=== PATIENT | female | born 1940 | race Caucasian/White ===

== ENCOUNTER 2017-11-24 09:00 | Observation (INO) | payer MEDICARE, MEDICAID ==
[~2017-11-24] VITALS: Ht 152.4 cm; Wt 66.6 kg
[~2017-11-24 09:00] MED LIST: ASPI-1264 PO; ATE25T PO; ATOR40TA PO; METH-360 PO; TELM40TA4 PO; TELM80TA2 PO; UBID100C45 PO
[2017-11-24 09:40] LABS: BASOPHILS % (AUTO) 0.4 % (0-1); EOSINOPHILS # (AUTO) 0.2 X10'3 (0-0.9); EOSINOPHILS % (AUTO) 2.9 % (0-6); HEMATOCRIT 46.8 % (35.0-45.0); HEMOGLOBIN 15.9 g/dl (12.0-16.0); LYMPHOCYTES # (AUTO) 1.4 X10'3 (1.1-4.8); LYMPHOCYTES % (AUTO) 23.1 % (21-51); MEAN CORPUSCULAR HEMOGLOBIN 31.6 PG (27.0-31.0); MEAN CORPUSCULAR HGB CONC 33.9 % (33.0-36.5); MEAN CORPUSCULAR VOLUME 93.3 FL (78-98); MEAN PLATELET VOLUME 8.7 FL (7.4-10.4); MONOCYTES # (AUTO) 0.4 X10'3 (0-0.9); MONOCYTES % (AUTO) 6.6 % (2-12); PLATELET COUNT 162 X10'3 (140-440); RED BLOOD COUNT 5.02 X10'6 (4.20-5.60); RED CELL DISTRIBUTION WIDTH 13.9 % (11.5-14.5)
[2017-11-24 09:58] LABS: PARTIAL THROMBOPLASTIN TIME 25 SECONDS (22-32)
[2017-11-24] MEDS ORDERED: HYDR25TA4 PO (10:10)
[2017-11-24 10:17] LABS: ALANINE AMINOTRANSFERASE 23 U/L (12-78); ALBUMIN 4.4 G/DL (3.4-5.0); ALKALINE PHOSPHATASE 192 IU/L (46-116); ANION GAP 13 (8-16); ASPARTATE AMINO TRANSFERASE 26 U/L (10-37); BILIRUBIN,TOTAL 0.7 MG/DL (0.1-1.0); BLOOD UREA NITROGEN 21 MG/DL (7-18); BUN/CREATININE RATIO 19.4 (6.6-38.0); CALCIUM 10.7 MG/DL (8.5-10.1); CHLORIDE 102 MMOL/L (99-107); CREATININE 1.08 MG/DL (0.40-0.90); GLUCOSE 97 MG/DL (70-104); SODIUM 142 MMOL/L (135-145); TOTAL CARBON DIOXIDE 27.1 MMOL/L (24-32); TOTAL PROTEIN 8.9 G/DL (6.4-8.2); eGFR 49 ML/MIN
[2017-11-24] MEDS ORDERED: atenolol 25mg tablet PO ONE (10:45)
[2017-11-24] MEDS ORDERED: potassium Cl 10 mEq/100mL bag IV ONE (11:20)
[2017-11-24] MEDS ORDERED: potassium 10mEq/100ml NS w/LIDOcaine (10mg/bag) IV ONE (11:25)
[2017-11-24] MEDS ORDERED: acetaminophen 325mg tablet PO PRN ×2 (13:10)
[2017-11-24] MEDS ORDERED: aspirin 81mg tab.chew PO ONE (13:17)
[2017-11-24 13:33] LABS: HEMOGLOBIN A1C 6.1 % (4.5-6.2)
[2017-11-24] MEDS: normal saline 1000ml 1,000 ML IV SCH (13:59)
[2017-11-24 15:00] VITALS: BP 166/75
[2017-11-24 15:52] VITALS: BP 166/75
[2017-11-24] MEDS ORDERED: LORazepam 2 mg/ml vial IM ONE (16:30)
[2017-11-24] MEDS ORDERED: LORazepam 2 mg/ml vial IV ONE (16:40)
[2017-11-24 17:05] VITALS: BP 186/96
[2017-11-24] MEDS ORDERED: cyclobenzaprine 10mg tablet PO PRN (17:25)
[2017-11-24] MEDS ORDERED: HYDROchlorothiazide 25mg tablet PO ONE (18:00)
[2017-11-24 18:09] VITALS: BP 168/93
[2017-11-24] MEDS: docusate sod 100mg capsule PO SCH (20:46)
[2017-11-24] MEDS ORDERED: atorvastatin 20mg tablet PO SCH (21:00)
[2017-11-24] MEDS ORDERED: losartan 25mg tablet PO SCH (21:00)
[2017-11-24 21:12] VITALS: BP 122/68
[2017-11-25 02:00] VITALS: BP 139/79
[2017-11-25 05:00] VITALS: BP 152/69
[2017-11-25] MEDS: normal saline 1000ml 1,000 ML IV SCH (05:31)
[2017-11-25 06:24] LABS: CHOL/HDL RATIO 2.4 (0.00-4.99); CHOLESTEROL 125 MG/DL (0-200); HDL CHOLESTEROL 52 MG/DL (35-60); LDL CHOLESTEROL 62 MG/DL (50-100); TRIGLYCERIDES 94 MG/DL (20-135)
[2017-11-25 07:03] VITALS: BP 125/75
[2017-11-25] MEDS: docusate sod 100mg capsule PO SCH (07:11)
[2017-11-25] MEDS ORDERED: aspirin 81mg tablet.DR PO SCH (08:00)
[2017-11-25] MEDS ORDERED: atenolol 25mg tablet PO SCH (08:00)
[2017-11-25] MEDS ORDERED: enoxaparin 40mg/0.4ml syringe SQ SCH (08:00)
[2017-11-25] MEDS ORDERED: HYDROchlorothiazide 25mg tablet PO SCH (08:00)
[2017-11-25] MEDS ORDERED: aspirin 325mg tablet PO SCH (08:00)
[2017-11-25] MEDS ORDERED: atorvastatin 10mg tablet PO SCH (08:00)
[2017-11-25 10:00] VITALS: BP 130/73
[2017-11-25] MEDS ORDERED: CLOP75TA15 PO (12:16)
== END 2017-11-25 14:35 | disposition home health service (06) ==
LOC: ER 09:00 → ED HOLD 13:07 → UNDOADMIN 13:07 → ORTHO 4S 15:00
PROVIDERS: ADMIT Internal Medicine; ATTEND Internal Medicine
DX: I10 Essential (primary) hypertension (principal); E78.5 Hyperlipidemia, unspecified; I65.23 Occlusion and stenosis of bilateral carotid arteries; N17.9 Acute kidney failure, unspecified; Z86.73 Personal history of transient ischemic attack (TIA), and cerebral infarction without residual deficits; Z79.01 Long term (current) use of anticoagulants; Z79.82 Long term (current) use of aspirin; Z98.51 Tubal ligation status; Z87.891 Personal history of nicotine dependence
CPT/HCPCS: 36415; 70450; 70544; 70551; 71045; 80053; 80061; 82948; 83036; 84484; 85025; 85610; 85730; 87070; 92616; 93005; 93306; 93880; 96372; 96374; 97116; 97161; 99285; G0378; J1650; J2060; J7030; J3480

== ENCOUNTER → 2018-01-08 | Emergency (ER) | payer MEDICARE, MEDICAID ==
[~2018-01-08] VITALS: Ht 152.4 cm; Wt 68.0 kg
[~2018-01-08] MED LIST changes: +CLOP75TA15 PO; +HYDR25TA4 PO; -TELM80TA2 PO
[2018-01-08 11:49] VITALS: BP 140/92
== END | disposition home or self-care (01) ==
LOC: ER 11:42
DX: S20.212A Contusion of left front wall of thorax, initial encounter (principal); E78.00 Pure hypercholesterolemia, unspecified; I10 Essential (primary) hypertension; J44.9 Chronic obstructive pulmonary disease, unspecified; E11.9 Type 2 diabetes mellitus without complications; F12.90 Cannabis use, unspecified, uncomplicated; Z98.890 Other specified postprocedural states; Z98.51 Tubal ligation status; Z88.1 Allergy status to other antibiotic agents; Z88.2 Allergy status to sulfonamides; Z88.5 Allergy status to narcotic agent; Z79.82 Long term (current) use of aspirin; Z79.899 Other long term (current) drug therapy; W19.XXXA Unspecified fall, initial encounter; Y93.89 Activity, other specified; Y92.89 Other specified places as the place of occurrence of the external cause; Y99.9 Unspecified external cause status
CPT/HCPCS: 71101; 99284

== ENCOUNTER 2018-10-16 12:12 | Emergency (ER) | payer MEDICARE, MEDICAID ==
[~2018-10-16] VITALS: Ht 154.9 cm; Wt 68.2 kg
[2018-10-16 13:35] VITALS: BP 117/71
== END 2018-10-16 13:29 | disposition home or self-care (01) ==
LOC: ER 12:13
DX: S30.0XXA Contusion of lower back and pelvis, initial encounter (principal); E78.00 Pure hypercholesterolemia, unspecified; I10 Essential (primary) hypertension; J44.9 Chronic obstructive pulmonary disease, unspecified; E11.9 Type 2 diabetes mellitus without complications; F12.90 Cannabis use, unspecified, uncomplicated; Z98.890 Other specified postprocedural states; Z98.51 Tubal ligation status; Z88.1 Allergy status to other antibiotic agents; Z88.2 Allergy status to sulfonamides; Z88.5 Allergy status to narcotic agent; Z79.82 Long term (current) use of aspirin; Z79.899 Other long term (current) drug therapy; X58.XXXA Exposure to other specified factors, initial encounter; Y93.89 Activity, other specified; Y92.89 Other specified places as the place of occurrence of the external cause; Y99.9 Unspecified external cause status
CPT/HCPCS: 99281

== ENCOUNTER 2018-12-06 16:19 | Emergency (ER) | payer MEDICARE, MEDICAID ==
[~2018-12-06] VITALS: Ht 152.4 cm; Wt 68.2 kg
[2018-12-06 19:49] VITALS: BP 148/97
== END 2018-12-06 19:50 | disposition home or self-care (01) ==
LOC: ER 16:19
DX: M79.605 Pain in left leg (principal); E78.00 Pure hypercholesterolemia, unspecified; I10 Essential (primary) hypertension; J44.9 Chronic obstructive pulmonary disease, unspecified; E11.9 Type 2 diabetes mellitus without complications; F10.99 Alcohol use, unspecified with unspecified alcohol-induced disorder; F12.90 Cannabis use, unspecified, uncomplicated; F41.9 Anxiety disorder, unspecified; Z86.19 Personal history of other infectious and parasitic diseases; Z98.890 Other specified postprocedural states; Z98.51 Tubal ligation status; Z88.1 Allergy status to other antibiotic agents; Z88.2 Allergy status to sulfonamides; Z88.5 Allergy status to narcotic agent; Z88.8 Allergy status to other drugs, medicaments and biological substances; Z79.82 Long term (current) use of aspirin; Z79.899 Other long term (current) drug therapy; Y90.9 Presence of alcohol in blood, level not specified
CPT/HCPCS: 93971; 99284

== ENCOUNTER 2019-01-12 15:57 | Emergency (ER) | payer MEDICARE, MEDICAID, OTHER ==
[~2019-01-12] VITALS: Ht 152.4 cm; Wt 63.9 kg
[2019-01-12 16:47] LABS: CLARITY,URINE CLEAR (Clear); COLOR,URINE YELLOW (Yellow); GLUCOSE, URINE NEGATIVE (Neg); KETONES,URINE NEGATIVE (Neg); LEUKOCYTE ESTERASE ,URINE SMALL (Neg); NITRITES, URINE NEGATIVE (Neg); OCCULT BLOOD,URINE NEGATIVE (Neg); PROTEIN,URINE NEGATIVE (Neg); UROBILINOGEN,URINE 0.2 E.U/dL (0.2-1.0)
[2019-01-12 16:52] LABS: UA COLLECTION TYPE CLN CATCH MIDSTREAM
[2019-01-12 16:57] LABS: BACTERIA,URINE 1+ /HPF (Neg); RBC,URINE NONE SEEN /HPF (0-2); SQUAMOUS EPITHELIAL CELL,UR MANY /LPF (FEW); YEAST FEW /HPF (NEGATIVE)
[2019-01-12 17:08] LABS: BASOPHILS % (AUTO) 0.4 % (0-1); EOSINOPHILS # (AUTO) 0.1 X10'3 (0-0.9); EOSINOPHILS % (AUTO) 1.2 % (0-6); HEMATOCRIT 39.7 % (35.0-45.0); HEMOGLOBIN 13.3 g/dl (12.0-16.0); LYMPHOCYTES # (AUTO) 1.4 X10'3 (1.1-4.8); LYMPHOCYTES % (AUTO) 22.2 % (21-51); MEAN CORPUSCULAR HEMOGLOBIN 31.1 PG (27.0-31.0); MEAN CORPUSCULAR HGB CONC 33.4 g/dL (33.0-36.5); MEAN PLATELET VOLUME 8.7 FL (7.4-10.4); MONOCYTES # (AUTO) 0.5 X10'3 (0-0.9); MONOCYTES % (AUTO) 7.8 % (2-12); NEUTROPHILS # (AUTO) 4.2 X10'3 (1.8-7.7); NEUTROPHILS % (AUTO) 68.4 % (42-75); PLATELET COUNT 133 X10'3 (140-440); RED BLOOD COUNT 4.27 X10'6 (4.20-5.60); RED CELL DISTRIBUTION WIDTH 14.5 % (11.5-14.5); WHITE BLOOD COUNT 6.1 X10'3 (4.5-11.0)
[2019-01-12 17:22] LABS: ALANINE AMINOTRANSFERASE 29 U/L (12-78); ALBUMIN 3.7 G/DL (3.4-5.0); ALBUMIN/GLOBULIN RATIO 0.9 (1.1-1.5); ALKALINE PHOSPHATASE 98 IU/L (46-116); ANION GAP 10 (8-16); ASPARTATE AMINO TRANSFERASE 24 U/L (10-37); BILIRUBIN,TOTAL 0.6 MG/DL (0.1-1.0); BLOOD UREA NITROGEN 24 MG/DL (7-18); CALCIUM 9.5 MG/DL (8.5-10.1); CHLORIDE 104 MMOL/L (99-107); CREATININE 1.26 MG/DL (0.40-0.90); GLUCOSE 92 MG/DL (70-104); LIPASE 238 U/L (73-393); SODIUM 138 MMOL/L (135-145); TOTAL PROTEIN 7.6 G/DL (6.4-8.2); eGFR 41 ML/MIN
[2019-01-12] MEDS ORDERED: DOXY100C43 PO (18:44)
[2019-01-12 18:52] VITALS: BP 113/72
== END 2019-01-12 18:54 | disposition home or self-care (01) ==
LOC: ER 15:58
DX: N39.0 Urinary tract infection, site not specified (principal); E78.00 Pure hypercholesterolemia, unspecified; I10 Essential (primary) hypertension; J44.9 Chronic obstructive pulmonary disease, unspecified; J45.998 Other asthma; B19.10 Unspecified viral hepatitis B without hepatic coma; F41.8 Other specified anxiety disorders; Z98.51 Tubal ligation status; F12.90 Cannabis use, unspecified, uncomplicated; Z88.5 Allergy status to narcotic agent; Z88.2 Allergy status to sulfonamides; E11.8 Type 2 diabetes mellitus with unspecified complications
CPT/HCPCS: 36415; 80053; 81001; 83690; 85025; 99283

== ENCOUNTER 2019-02-06 13:01 | Emergency (ER) | payer MEDICARE, MEDICAID ==
[~2019-02-06] VITALS: Ht 167.6 cm; Wt 62.0 kg
[2019-02-06 13:46] LABS: BASOPHILS % (AUTO) 0.4 % (0-1); EOSINOPHILS % (AUTO) 0.9 % (0-6); HEMATOCRIT 40.7 % (35.0-45.0); HEMOGLOBIN 13.7 g/dl (12.0-16.0); LYMPHOCYTES # (AUTO) 0.9 X10'3 (1.1-4.8); LYMPHOCYTES % (AUTO) 21.9 % (21-51); MEAN CORPUSCULAR HEMOGLOBIN 31.4 PG (27.0-31.0); MEAN CORPUSCULAR HGB CONC 33.6 g/dL (33.0-36.5); MEAN CORPUSCULAR VOLUME 93.4 FL (78-98); MEAN PLATELET VOLUME 8.6 FL (7.4-10.4); MONOCYTES # (AUTO) 0.3 X10'3 (0-0.9); MONOCYTES % (AUTO) 7.9 % (2-12); NEUTROPHILS # (AUTO) 2.8 X10'3 (1.8-7.7); NEUTROPHILS % (AUTO) 68.9 % (42-75); PLATELET COUNT 126 X10'3 (140-440); RED BLOOD COUNT 4.36 X10'6 (4.20-5.60); RED CELL DISTRIBUTION WIDTH 15.1 % (11.5-14.5); WHITE BLOOD COUNT 4.1 X10'3 (4.5-11.0)
[2019-02-06] MEDS ORDERED: ondansetron 4mg rapidly disintigrating tab PO ONE (13:55)
[2019-02-06 14:03] LABS: ALANINE AMINOTRANSFERASE 24 U/L (12-78); ALBUMIN 3.5 G/DL (3.4-5.0); ALKALINE PHOSPHATASE 91 IU/L (46-116); ANION GAP 8 (8-16); ASPARTATE AMINO TRANSFERASE 26 U/L (10-37); BILIRUBIN,TOTAL 0.8 MG/DL (0.1-1.0); BLOOD UREA NITROGEN 15 MG/DL (7-18); BUN/CREATININE RATIO 12.3 (6.6-38.0); CALCIUM 9.3 MG/DL (8.5-10.1); CHLORIDE 106 MMOL/L (99-107); CREATININE 1.22 MG/DL (0.40-0.90); GLUCOSE 92 MG/DL (70-104); LIPASE 123 U/L (73-393); POTASSIUM 3.9 MMOL/L (3.5-5.1); SODIUM 141 MMOL/L (135-145); TOTAL CARBON DIOXIDE 27.4 MMOL/L (24-32); TOTAL PROTEIN 7.1 G/DL (6.4-8.2); eGFR 43 ML/MIN
[2019-02-06] MEDS ORDERED: ONDA8TAB6 PO (14:15)
[2019-02-06 14:21] LABS: CLARITY,URINE CLEAR (Clear); COLOR,URINE YELLOW (Yellow); GLUCOSE, URINE NEGATIVE (Neg); KETONES,URINE NEGATIVE (Neg); LEUKOCYTE ESTERASE ,URINE TRACE (Neg); NITRITES, URINE NEGATIVE (Neg); OCCULT BLOOD,URINE TRACE-INTACT (Neg); PROTEIN,URINE 30 mg/dl (Neg)
[2019-02-06 14:23] LABS: UA COLLECTION TYPE CLN CATCH MIDSTREAM
[2019-02-06 14:27] VITALS: BP 121/70
[2019-02-06 14:29] LABS: BACTERIA,URINE FEW /HPF (Neg); MUCUS STRANDS FEW /LPF (Neg); RBC,URINE 0-2 /HPF (0-2); SQUAMOUS EPITHELIAL CELL,UR MANY /LPF (FEW); WBC,URINE 0-4 /HPF (0-4)
== END 2019-02-06 14:30 | disposition home or self-care (01) ==
LOC: ER 13:01
DX: R19.7 Diarrhea, unspecified (principal); R10.84 Generalized abdominal pain; R11.0 Nausea; E78.00 Pure hypercholesterolemia, unspecified; I10 Essential (primary) hypertension; J44.9 Chronic obstructive pulmonary disease, unspecified; E11.9 Type 2 diabetes mellitus without complications; F41.9 Anxiety disorder, unspecified; F12.90 Cannabis use, unspecified, uncomplicated; Z88.1 Allergy status to other antibiotic agents; Z88.2 Allergy status to sulfonamides; Z88.8 Allergy status to other drugs, medicaments and biological substances; Z79.82 Long term (current) use of aspirin; Z79.899 Other long term (current) drug therapy; Z98.51 Tubal ligation status; Z98.890 Other specified postprocedural states
CPT/HCPCS: 36415; 80053; 81001; 83690; 85025; 99283

== ENCOUNTER 2019-10-01 18:14 | Emergency (ER) | payer MEDICARE, MEDICAID ==
[~2019-10-01] VITALS: Ht 152.4 cm; Wt 60.9 kg
[~2019-10-01 18:14] MED LIST changes: +ONDA8TAB6 PO
[2019-10-01 18:38] LABS: BASOPHILS % (AUTO) 0.5 % (0-1); EOSINOPHILS # (AUTO) 0.1 X10'3 (0-0.9); EOSINOPHILS % (AUTO) 1.4 % (0-6); HEMOGLOBIN 13.9 g/dl (12.0-16.0); LYMPHOCYTES # (AUTO) 1.5 X10'3 (1.1-4.8); LYMPHOCYTES % (AUTO) 24.9 % (21-51); MEAN CORPUSCULAR HEMOGLOBIN 31.3 PG (27.0-31.0); MEAN CORPUSCULAR HGB CONC 33.8 g/dL (33.0-36.5); MEAN CORPUSCULAR VOLUME 92.8 FL (78-98); MEAN PLATELET VOLUME 8.6 FL (7.4-10.4); MONOCYTES # (AUTO) 0.4 X10'3 (0-0.9); MONOCYTES % (AUTO) 7.2 % (2-12); PLATELET COUNT 156 X10'3 (140-440); RED BLOOD COUNT 4.42 X10'6 (4.20-5.60)
[2019-10-01 18:50] LABS: ALANINE AMINOTRANSFERASE 22 U/L (12-78); ALBUMIN 3.6 G/DL (3.4-5.0); ALBUMIN/GLOBULIN RATIO 0.9 (1.1-1.5); ALKALINE PHOSPHATASE 152 IU/L (46-116); ANION GAP 10 (8-16); ASPARTATE AMINO TRANSFERASE 18 U/L (10-37); BILIRUBIN,TOTAL 0.5 MG/DL (0.1-1.0); BLOOD UREA NITROGEN 20 MG/DL (7-18); BUN/CREATININE RATIO 11.8 (6.6-38.0); CALCIUM 9.1 MG/DL (8.5-10.1); CHLORIDE 105 MMOL/L (99-107); CREATININE 1.69 MG/DL (0.40-0.90); GLUCOSE 109 MG/DL (70-104); POTASSIUM 4.2 MMOL/L (3.5-5.1); SODIUM 139 MMOL/L (135-145); TOTAL CARBON DIOXIDE 24.2 MMOL/L (24-32); TOTAL PROTEIN 7.6 G/DL (6.4-8.2); eGFR 29 ML/MIN
[2019-10-01] MEDS ORDERED: normal saline 1000ML IV soln IVB ONE (18:55)
[2019-10-01 19:32] LABS: CLARITY,URINE CLEAR (Clear); COLOR,URINE YELLOW (Yellow); GLUCOSE, URINE NEGATIVE (Neg); KETONES,URINE NEGATIVE (Neg); LEUKOCYTE ESTERASE ,URINE SMALL (Neg); NITRITES, URINE NEGATIVE (Neg); OCCULT BLOOD,URINE NEGATIVE (Neg); PROTEIN,URINE NEGATIVE (Neg); UROBILINOGEN,URINE 0.2 E.U/dL (0.2-1.0)
[2019-10-01 19:40] LABS: UA COLLECTION TYPE CLN CATCH MIDSTREAM
[2019-10-01 19:41] LABS: BACTERIA,URINE FEW /HPF (Neg); RBC,URINE 0-2 /HPF (0-2); SQUAMOUS EPITHELIAL CELL,UR FEW /LPF (FEW)
[2019-10-01 20:01] LABS: D-DIMER 0.41 MG/L FEU (0-0.50)
[2019-10-01] MEDS ORDERED: NITR100C6 PO (20:18)
[2019-10-01 20:45] VITALS: BP 132/84
== END 2019-10-01 20:46 | disposition home or self-care (01) ==
LOC: ER 18:14
DX: N39.0 Urinary tract infection, site not specified (principal); R42 Dizziness and giddiness; R07.89 Other chest pain; E78.00 Pure hypercholesterolemia, unspecified; I10 Essential (primary) hypertension; J44.9 Chronic obstructive pulmonary disease, unspecified; E11.9 Type 2 diabetes mellitus without complications; F41.9 Anxiety disorder, unspecified; Z86.73 Personal history of transient ischemic attack (TIA), and cerebral infarction without residual deficits; Z86.19 Personal history of other infectious and parasitic diseases; Z72.89 Other problems related to lifestyle; Z98.51 Tubal ligation status; Z98.890 Other specified postprocedural states; Z88.2 Allergy status to sulfonamides; Z88.8 Allergy status to other drugs, medicaments and biological substances; Z79.82 Long term (current) use of aspirin; Z79.899 Other long term (current) drug therapy
CPT/HCPCS: 36415; 71045; 80053; 81001; 83880; 84484; 85025; 85379; 87088; 93005; 99285; J7030

== ENCOUNTER 2020-06-17 11:12 | Emergency (ER) | payer BC, MEDICAID ==
[~2020-06-17] VITALS: Ht 154.9 cm; Wt 62.2 kg
[~2020-06-17 11:12] MED LIST changes: +NITR100C6 PO
[2020-06-17 13:35] VITALS: BP 165/82
[2020-06-17] MEDS ORDERED: ibuprofen tablet 400 MG TABLET PO ONE (14:50)
== END 2020-06-17 15:54 | disposition home or self-care (01) ==
LOC: ER 11:13
DX: M25.531 Pain in right wrist (principal); M25.511 Pain in right shoulder; M79.675 Pain in left toe(s); E78.00 Pure hypercholesterolemia, unspecified; I10 Essential (primary) hypertension; J44.9 Chronic obstructive pulmonary disease, unspecified; F41.9 Anxiety disorder, unspecified; Z86.73 Personal history of transient ischemic attack (TIA), and cerebral infarction without residual deficits; Z86.19 Personal history of other infectious and parasitic diseases; Z87.440 Personal history of urinary (tract) infections; Z98.51 Tubal ligation status; Z98.890 Other specified postprocedural states; Z72.89 Other problems related to lifestyle; Z88.2 Allergy status to sulfonamides; Z88.1 Allergy status to other antibiotic agents; Z88.8 Allergy status to other drugs, medicaments and biological substances; Z79.82 Long term (current) use of aspirin; Z79.899 Other long term (current) drug therapy
CPT/HCPCS: 73030; 73110; 73660; 99284